=== PATIENT | male | born 1995 | race Caucasian/White ===

== ENCOUNTER 2019-02-11 15:26 | Emergency (ER) | payer MEDICAID ==
[2019-02-11] MEDS: CYCLOBENZAPRINE 10 MG TAB PO (16:32)
[2019-02-11] MEDS: KETOROLAC 30 MG INJ IM (16:32)
== END 2019-02-11 17:07 | disposition home or self-care (01) ==
LOC: FTE 15:26
DX: M54.9 Dorsalgia, unspecified (principal)
CPT/HCPCS: 96372; 99284-25